=== PATIENT | female | born 1980 | race Native Hawaiian/Other Pacific Islander ===

== ENCOUNTER 2016-12-28 11:24 | Emergency (ER) | payer BC, OTHER ==
[~2016-12-28] VITALS: Ht 160 cm; Wt 98.0 kg
[~2016-12-28 11:24] MED LIST: CITA20 PO; LORTA5 PO
[2016-12-28 11:29] VITALS: BP 147/104; PULSE 85; RESP 16; TEMP 98.8; O2SAT 100
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
[2016-12-28 12:06] LABS: AUTOMATED NEUTROPHIL # 6.9 TH/MM3 (1.8-7.7); BASOPHIL # 0.4 TH/MM3 (0-0.2); BASOPHIL % 3.2 % (0.0-2.0); EOSINOPHIL # 0.2 TH/MM3 (0-0.4); EOSINOPHIL % 1.7 % (0.0-4.0); HEMATOCRIT 37.3 % (35.0-46.0); LYMPH % 28.9 % (9.0-44.0); LYMPHOCYTE # 3.3 TH/MM3 (1.0-4.8); MEAN CELL VOLUME 73.1 FL (80.0-100.0); MEAN CORPUSCULAR HEMOGLOBIN 23.9 PG (27.0-34.0); MEAN CORPUSCULAR HGB CONC 32.6 % (32.0-36.0); MONO % 5.5 % (0.0-8.0); NEUT % 60.7 % (16.0-70.0); PLATELET COUNT 295 TH/MM3 (150-450); RED CELL DISTRIBUTION WIDTH 14.9 % (11.6-17.2); WHITE BLOOD COUNT 11.4 TH/MM3 (4.0-11.0)
[2016-12-28 12:09] LABS: HEMO FLAGS AUTO DIFF
[2016-12-28 12:14] LABS: CHLORIDE 103 MEQ/L (98-107); SODIUM (NA) 138 MEQ/L (136-145)
[2016-12-28 12:15] LABS: POTASSIUM 4.3 MEQ/L (3.5-5.1)
[2016-12-28 12:17] LABS: ANION GAP 9 MEQ/L (5-15); BICARBONATE 25.6 MEQ/L (21.0-32.0)
[2016-12-28 12:18] LABS: BLOOD UREA NITROGEN 8 MG/DL (7-18)
[2016-12-28 12:21] VITALS: BP 116/75; PULSE 75; RESP 20; O2SAT 98
[2016-12-28 12:21] LABS: ALT (GPT) 25 U/L (10-53); AST (GOT) 24 U/L (15-37); GLOMERULAR FILTRATION RATE 95 ML/MIN (>89)
[2016-12-28 12:22] LABS: TOTAL BILIRUBIN ADULT 0.7 MG/DL (0.2-1.0)
[2016-12-28 12:23] LABS: ALKALINE PHOSPHATASE 66 U/L (45-117)
[2016-12-28 12:26] LABS: BETA HCG QUANT LESS THAN 1 MIU/ML (0-5)
[2016-12-28 12:31] LABS: SCAN/DIFF AUTO DIFF CONFIRMED
--- NOTE | 2016-12-30 00:03 | EKG ---
Date Performed: 12/28/2016 Time Performed: 11:55:04 PTAGE: 36 years EKG: Sinus rhythm Normal ECG NO PREVIOUS TRACING DOCTOR: Paul Choe Interpretating Date/Time 12/30/2016 00:02:36
== END 2016-12-28 13:04 | disposition home or self-care (01) ==
LOC: PHED 11:24
DX: F43.21 Adjustment disorder with depressed mood (principal); R42 Dizziness and giddiness; R53.81 Other malaise; R53.83 Other fatigue; M54.5 Low back pain; Z86.59 Personal history of other mental and behavioral disorders; Z86.2 Personal history of diseases of the blood and blood-forming organs and certain disorders involving the immune mechanism
CPT/HCPCS: 80053; 84702; 85025; 93005

== ENCOUNTER 2017-03-07 23:33 | Emergency (ER) | payer OTHER ==
[~2017-03-07] VITALS: Ht 160 cm; Wt 88.1 kg
[2017-03-07 23:40] VITALS: BP 139/105; PULSE 84; RESP 14; TEMP 97.8; O2SAT 100
[2017-03-07 23:45] VITALS: BP 139/105; PULSE 84; RESP 18; TEMP 97.8; O2SAT 100
[2017-03-08] MEDS ORDERED: ORPHENADRINE INJ 60 MG/2 ML AMP IM ONE (00:15)
[2017-03-08] MEDS ORDERED: KETOROLAC TROMETHAMINE 60 MG/2 ML (IM) VIAL IM ONE (00:15)
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
[2017-03-08 01:26] VITALS: RESP 18
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
[2017-03-08] MEDS ORDERED: CYCL1TAB29 PO (01:50)
[2017-03-08] MEDS ORDERED: IBUP-232 PO (01:53)
[2017-03-08 01:56] VITALS: BP 145/70; TEMP 98
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
== END 2017-03-08 02:02 | disposition home or self-care (01) ==
LOC: PHED 23:33
DX: S16.1XXA Strain of muscle, fascia and tendon at neck level, initial encounter (principal); S39.012A Strain of muscle, fascia and tendon of lower back, initial encounter; S46.812A Strain of other muscles, fascia and tendons at shoulder and upper arm level, left arm, initial encounter
CPT/HCPCS: 72125; 72131; 96372; 99283; J1885; J2360